=== PATIENT | female | born 1960 | race Caucasian/White ===

== ENCOUNTER 2016-09-12 06:45 | Outpatient (CLI) | payer MEDICARE, MEDICAID ==
[~2016-09-12] VITALS: Ht 167.6 cm; Wt 113.4 kg
[~2016-09-12 06:45] MED LIST: AC325T PO; AMLO1TAB55 PO; ASP325TEC PO; ASP81CT; ASP81TEC PO; ATR20T PO; AZIT500T2; CLN.1T PO; CLNZ.5T PO; CYCL10TA9 PO; DEXL60CA5 PO; DULO30CA PO; DULO30CA48; EST05TD TD; ESTR0.62 PO; EZET10TA5; FENO145T2; FENO145T2 PO; GLMP4T; HYDR-1231 PO; HYDR-34 PO; IBP200T PO; INSU100C; INSU100V8; INSU10VI; LOSA25TA15 PO; LOSA25TA21; LOSA25TA5; LOSA50TA36; METF-380 PO; METF1000; MTF500T; MULT1CAP27 PO; NOVALOG INSULIN PUMP SC; NYST30OI TOP; OXYC-12 PO; PRCD5U PO; PREG50C PO; PROP20TA23; PROP20TA23 PO; PROP20TA5 PO; SIMV40TA2; SIMV40TA2 PO; SIMV40TA4 PO
[2016-09-12] MEDS ORDERED: EZET10TA5 PO (15:07)
[2016-09-12] MEDS ORDERED: DULO30CA3 PO (15:07)
[2016-09-12] MEDS ORDERED: LOSA25TA21 PO (15:07)
== END 2016-09-12 15:12 ==
LOC: PREOP 06:45
PROVIDERS: ATTEND Surgery
DX: Z01.818 Encounter for other preprocedural examination (principal); Z86.010 Personal history of colon polyps; Z83.71 Family history of colonic polyps

== ENCOUNTER 2016-09-16 09:55 | Day surgery (SDC) | payer MEDICARE, MEDICAID ==
[~2016-09-16] VITALS: Ht 167.6 cm; Wt 113.4 kg
[~2016-09-16 09:55] MED LIST changes: +DULO30CA3 PO; +EZET10TA5 PO; +LOSA25TA21 PO
[2016-09-16] MEDS ORDERED: NS IV 500 ML 500 ML ONE ×2 (10:05→11:57)
[2016-09-16 10:14] VITALS: BP 149/105
[2016-09-16] MEDS ORDERED: NS IV 500 ML 500 ML IV ONE (10:15)
[2016-09-16] MEDS ORDERED: MIDAZOLAM 2 MG/2 ML (VERSED) VIAL ONE ×4 (11:29)
[2016-09-16] MEDS ORDERED: fentaNYL INJECTION 100 MCG/2 ML AMP ONE ×2 (11:29)
[2016-09-16] MEDS: fentaNYL INJECTION 100 MCG/2 ML AMP IVP PRN ×2 (11:45→11:47)
[2016-09-16] MEDS: MIDAZOLAM 2 MG/2 ML (VERSED) VIAL IVP PRN ×4 (11:46→12:02)
--- NOTE | 2016-09-16 11:47 | Conscious Sedation/ASA ---
Conscious Sedation Pre-Proced Time Reviewed: 11:47 ASA Class: 2 Airway Mallampati Classification: (brevig mission appropriate class) I. II. III, IV Lungs Heart ASA score ASA 1: a normal healthy patient ASA 2: a patient with a mild systemic disease (mid diabetes, controlled hypertension, obesity ASA 3: a patient with a severe systemic disease that limits activity (angina , COPD, prior Myocardial infarction) ASA 4: a patient with an incapacitating disease that is a constant threat to life (CHF, renal failure) ASA 5: a moribund patient not expected to survive 24 hrs. (ruptured aneurysm) ASA 6: a declared brain patient whose organs are being harvested. For emergent operations, add the letter E after the classification Grade 2 Sedation Plan: Discussed options with patient/fam Note The patient is an appropriate candidate to undergo the planned procedure, sedation, and anesthesia. The patient immediately re-assessed prior to indication. JENNIFER LIEBERMAN MD Sep 16, 2016 11:47 am
--- NOTE | 2016-09-16 11:47 | History & Physicial ---
History of Present Illness History of Present Illness Reason for visit/HPI To undergo surveillance colonoscopy. She has a personal history of polyps and a family history of colon cancer along with multiple polyps Date of Admission Date Seen by Provider: Sep 16, 2016 Time Seen by Provider: 11:42 I consulted on this patient on 09/16/16 11:42 Attending Physician Jennifer Roger MD Admitting Physician Cassi Adorno MD Consult Allergies and Home Medications Allergies Coded Allergies: Penicillins (Verified Allergy, Intermediate, RASH A CHILD, 09/12/16) Home Medications Duloxetine HCl 30 Mg Capsule.dr, 30 MG PO DAILY, (Reported) Ezetimibe 10 Mg Tablet, 10 MG PO EVENING, (Reported) Losartan Potassium 25 Mg Tablet, 12.5 MG PO BID, (Reported) Metformin Hcl 1,000 Mg Tablet, 1,000 MG PO BID, (Reported) [novalog insulin pump] , 1 SC DAILY, (Reported) Past Gloospe-Kvzxwh-Yffmsa Hx Patient Social History Marrital Status: single Employed/Student: unemployed Alcohol Use: Rarely Uses Recreational Drug Use: No Smoking Status: Never a Smoker 2nd Hand Smoke Exposure: No Recent Foreign Travel: No Contact w/other who traveled: No Recent Hopitalizations: No Recent Infectious Disease Expo: No Immunizations Up To Date Tetanus Booster (TDap): More than 5yrs Date of Pneumonia Vaccine: Dec 11, 2015 Date of Influenza Vaccine: Dec 11, 2015 Seasonal Allergies Seasonal Allergies: Yes Surgeries HX Surgeries: Yes (BILAT TKR, L SHOULDER REPAIR X3) Surgeries: Hysterectomy Respiratory Hx Respiratory Disorders: No Cardiovascular Hx Cardiovascular Disorders: Yes Cardiac Disorders: Hypertension Neurological Hx Neurological Disorders: Yes Neurological Disorders: Headaches /Migraines Reproductive System Hx Reproductive Disorders: No Sexually Transmitted Disease: No HIV/AIDS: No Female Reproductive Disorders: Ovarian Cyst Genitourinary Hx Genitourinary Disorders: Yes Gastrointestinal Hx Gastrointestinal Disorders: No Gastrointestinal Disorders: Chronic Constipation Musculoskeletal Hx Musculoskeletal Disorders: Yes Musculoskeletal Disorders: Arthritis, Fibromyalgia Endocrine Hx Endocrine Disorders: Yes Endocrine Disorders: Diabetes, Insulin dep HEENT HX ENT Disorders: Yes (GLASSES) Loss of Vision: Bilateral Hearing Impairment: Hard of Hearing, Bilateral Hearing Aide Cancer Hx Cancer: No Psychosocial Hx Psychiatric Problems: Yes Behavioral Health Disorders: Bipolar Integumentary HX Skin/Integumentary Disorder: No Blood Transfusions Hx Blood Disorders: No Family Medical History Significant Family History: Diabetes, Hypertension, Psychiatric Problems Constitutional: no symptoms reported EENTM: no symptoms reported Respiratory: no symptoms reported Cardiovascular: no symptoms reported Gastrointestinal: constipation Genitourinary: no symptoms reported Musculoskeletal: no symptoms reported Skin: no symptoms reported Psychiatric/Neurological: Anxiety Physical Exam Vital Signs Vital Sign - Last 12Hours 09/16/16 10:14 Temp 97.1 Pulse 70 Resp 20 B/P (MAP) 149/105 Pulse Ox 96 O2 Delivery Room Air Capillary Refill : General Appearance: No Apparent Distress HEENT: Normal ENT Inspection Neck: Normal Inspection Respiratory: Lungs Clear Cardiovascular: Regular Rate, Rhythm Gastrointestinal: Non Tender, Soft Rectal: Deferred Extremity: Normal Inspection Neurologic/Psychiatric: Alert, Oriented x3 Skin: Warm/Dry Assessment/Plan Assessment and Plan Personal h/o polyps and a family h/o colon cancer. Discussed in detail and willing to proceed. Problems: JENNIFER ROGER MD Sep 16, 2016 11:47 am
--- NOTE | 2016-09-16 12:16 | Endo Procedure Record ---
Endo Procedure Report Date of Procedure Sep 16, 2016 Surgeon (s) JENNIFER LIEBERMAN MD Post Procedure/Op Diagnosis polyps 2 at the hepati Procedure Performed colonoscopy to cecum Snare polypectomy Times 2 Description of Procedure Anesthesia Type: Conscious Sedation Specimen(s) collected/removed colon polyps Description of the Procedure Indication for procedure; This lady has a personal history of polyps and a family history of colon cancer. She returned for surveillance colonoscopy Informed consent was obtained after reviewing the procedure in detail. Description of the procedure: She was placed in left lateral decubitus position and her vital signs were monitored. Conscious sedation was achieved using Versed and fentanyl. Digital rectal examination was unremarkable. The colonoscope was then introduced into the rectum and advanced all the way up to the cecum. The scope was then withdrawn slowly and the mucosa examined in a systematic fashion. Findin polyps, adjacent to each other, measuring 3 and 2 mm each, at the hepatic flexure. These wave snared and retrieved. She tolerated the procedure well and was taken back to the nursing area in a stable condition. Impression: Personal history of polyps and family history of colon cancer. Hepatic flexure polyps excised. Recommend repeating in 2 years. Copies To: SABINE CONTRERAS MD, XAVIER M MD Sep 16, 2016 12:16 pm
--- NOTE | 2016-09-16 12:18 | Discharge Inst-Simple/Standard ---
Discharge Inst-Standard Discharge Medications New, Converted or Re-Newed RX: Other Patient Instructions/Follow Up Plan of Care/Instructions/FU: repeat colonoscopy in 2 years Activity as Tolerated: Yes Discharge Diet: No Restrictions JENNIFER LIEBERMAN MD Sep 16, 2016 12:18 pm
[2016-09-16 12:30] VITALS: BP 142/88
[2016-09-16] MEDS ORDERED: NS IV 500 ML 500 ML IV PRN (12:30)
[2016-09-16 13:00] VITALS: BP 138/87
[2016-09-16 13:10] VITALS: BP 138/87
== END 2016-09-16 13:10 | disposition home or self-care (01) ==
LOC: ENDO 09:55
PROVIDERS: ATTEND Surgery
DX: Z09 Encounter for follow-up examination after completed treatment for conditions other than malignant neoplasm (principal); K63.5 Polyp of colon; Z86.010 Personal history of colon polyps; Z80.0 Family history of malignant neoplasm of digestive organs; I10 Essential (primary) hypertension; E11.9 Type 2 diabetes mellitus without complications; Z79.4 Long term (current) use of insulin; F31.9 Bipolar disorder, unspecified

== ENCOUNTER → 2016-09-30 | Outpatient (CLI) | payer MEDICARE, MEDICAID ==
--- NOTE | 2016-09-30 12:44 | Diagnostic Imaging Report ---
EXAMINATION: Bilateral screening mammogram 2D views with tomosynthesis. The current study was also evaluated with a Computer Aided Detection (CAD) system. INDICATION: Screening. PERSONAL HISTORY: No current complaints stated on the questionnaire. COMPARISON: 11/18/2013. FINDINGS: The breasts are composed of heterogenously dense parenchyma which may decrease mammographic sensitivity. There are benign-appearing calcifications seen. There is a lobulated nodule in the posterior central aspect of the right breast, better seen in the CC projection, stable from prior exams. Allowing for technique and positional differences, no suspicious change is seen. IMPRESSION: No significant change. ACR BI-RADS Category 2: Benign findings. Result letter will be mailed to the patient. Note: At least 10% of breast cancer is not imaged by mammography. Dictated by: Dictated on workstation # [id number]
== END ==
LOC: RAD 09:57
PROVIDERS: ATTEND Nurse Practitioner Family
DX: Z12.31 Encounter for screening mammogram for malignant neoplasm of breast (principal)
CPT/HCPCS: 77067

== ENCOUNTER → 2016-11-20 | Outpatient (CLI) | payer MEDICARE, MEDICAID ==
[~2016-11-20] MED LIST changes: +CATHETER FLUSH 10 ML SYR IV PRN; +REGADENOSON 0.4 MG/5 ML SYR (LEXISCAN) IV ONE
[2016-11-20 10:41] VITALS: BP 167/99
[2016-11-20 10:44] VITALS: BP 216/97
--- NOTE | 2016-11-21 09:37 | STRESS TEST ---
DATE OF SERVICE: 11/20/2016 LEXISCAN MYOVIEW STRESS TEST REPORT REFERRING PHYSICIAN: Dr. Adorno Baseline heart rate is 71. Baseline blood pressure 167/ , baseline EKG is sinus rhythm with no ischemic changes. In summary, the patient was injected with 9.97 mCi of technetium-99 Myoview and the resting images were obtained. Then, the patient received 0.4 mg of Lexiscan followed by 32.2 mCi of technetium-99 Myoview. Throughout the test, there were no EKG changes. The resting and stress images were reviewed and compared in the short axis, horizontal long axis, and vertical long axis views. Review of the images showed good radiotracer uptake with no ischemia or infarction on SPECT images. SSS is 0 and TID value 1.09. On the gated images, the left ventricle appeared to be normal size with normal contractility. Calculated ejection fraction of 57%. CONCLUSION: 1. The patient tolerated the Lexiscan well. 2. No ischemia or infarction on SPECT images. 3. Normal left ventricular size and systolic function. Calculated ejection fraction of 57%. Job ID: [id number] DocumentID: [id number] Dictated Date: 11/20/2016 15:27:41 Instructional Writer Date: 11/20/2016 19:50:11 Dictated By: RANDY SILVER MD
== END ==
LOC: CARD 08:49
PROVIDERS: ATTEND Physician Assistant
DX: I10 Essential (primary) hypertension; I25.10 Atherosclerotic heart disease of native coronary artery without angina pectoris; E78.2 Mixed hyperlipidemia; R00.2 Palpitations
CPT/HCPCS: 78452; 93017

== ENCOUNTER → 2017-09-16 | Outpatient (CLI) | payer MEDICARE, MEDICAID ==
[~2017-09-16] MED LIST changes: -CATHETER FLUSH 10 ML SYR IV PRN; +METF10002; -REGADENOSON 0.4 MG/5 ML SYR (LEXISCAN) IV ONE
[2017-09-16 12:44] LABS: ABG BASE EXCESS 1.8 MMOL/L (-2.5-2.5); ABG PCO2 43 MMHG (35-45); ABG TCO2 27.7 MMOL/L (21.0-31.0)
[2017-09-16 12:47] LABS: ABG PO2 39 MMHG (79-93); ALLENS TEST YES-POS; INSPIRED O2 ROOM AIR; PATIENT TEMP 97.5; VENTILATOR NO
--- NOTE | 2017-09-16 13:01 | Diagnostic Imaging Report ---
INDICATION: Increasing shortness of breath. TIME OF EXAM: 12:30 PM Comparison is made with prior chest from 01/23/14. FINDINGS: The heart size is normal. The pulmonary vascularity is unremarkable. The lungs are clear. No infiltrate, effusion or pneumothorax is detected. IMPRESSION: No acute cardiopulmonary process is detected. Dictated by: Dictated on workstation # [id number]
[2017-09-16 13:10] LABS: ABG OXYGEN SATURATION 67 % (94-100)
== END ==
LOC: RT 11:54
PROVIDERS: ATTEND Nurse Practitioner Family
DX: J98.4 Other disorders of lung (principal)
CPT/HCPCS: 36600; 71046; 82805

== ENCOUNTER → 2017-09-19 | Outpatient (CLI) | payer MEDICARE, MEDICAID | LOC: SLEEP 13:00 | PROVIDERS: ATTEND Nurse Practitioner Family | DX: G47.10 Hypersomnia, unspecified (principal); R06.02 Shortness of breath ==

== ENCOUNTER 2017-09-23 12:37 | Outpatient (RCR) | payer MEDICARE, MEDICAID ==
[~2017-09-23 12:37] MED LIST changes: -LOSA25TA21; -LOSA25TA21 PO; +LOSA25TA6; +LOSA25TA6 PO; -LOSA50TA36; +LOSA50TA7; +METF-399; -METF10002
== END 2017-09-30 | disposition home or self-care (01) ==
LOC: DSME 12:37
PROVIDERS: ATTEND Family Medicine
DX: E11.65 Type 2 diabetes mellitus with hyperglycemia (principal); I10 Essential (primary) hypertension; E11.42 Type 2 diabetes mellitus with diabetic polyneuropathy; E66.9 Obesity, unspecified

== ENCOUNTER → 2017-09-24 | Outpatient (CLI) | payer MEDICARE, MEDICAID ==
[~2017-09-24] MED LIST changes: +LOSA25TA21; +LOSA25TA21 PO; -LOSA25TA6; -LOSA25TA6 PO; +LOSA50TA36; -LOSA50TA7; -METF-399; +METF10002; +RT-ALBUTEROL SULF 2.5 MG/3 ML PRE-MIX VIAL INH ONE; +RT-ALBUTEROL SULF 2.5 MG/3 ML PRE-MIX VIAL ONE
== END ==
LOC: RT 09:40
PROVIDERS: ATTEND Nurse Practitioner Family
DX: J98.4 Other disorders of lung (principal)
CPT/HCPCS: 94060; 94726; 94729